=== PATIENT | female | born 1965 | race Caucasian/White ===

== ENCOUNTER 2021-03-04 00:28 | Emergency (ER) | payer OTHER ==
[~2021-03-04] VITALS: Ht 175.3 cm; Wt 122.5 kg
[~2021-03-04 00:28] MED LIST: ALEVE220 M1 PO; DIOVAN320 MG PO
[2021-03-04] MEDS ORDERED: DRIZALMA SPRINK20 MG PO (00:49)
[2021-03-04] MEDS ORDERED: LIPITOR10 MG PO (00:50)
[2021-03-04] MEDS ORDERED: COZAAR 25 MG TA25 M1 PO (00:50)
[2021-03-04] MEDS ORDERED: VITAMIN D310 MCG/1 M PO (00:50)
[2021-03-04] MEDS ORDERED: OXYBUTYNIN 5 MG5 M2 PO (00:50)
[2021-03-04] MEDS ORDERED: SYNJARDY 12.5-1 EACH PO (00:50)
[2021-03-04 01:45] LABS: ABSOLUTE BASOPHILS 0.1 thou/uL (0.0-0.2); ABSOLUTE EOSINOPHILS 0.1 thou/uL (0.0-0.7); ABSOLUTE LYMPHOCYTES 2.5 thou/uL (0.8-5.3); ABSOLUTE MONOCYTES 0.6 thou/uL (0.0-1.2); ABSOLUTE NEUTROPHILS 7.7 thou/uL (1.6-8.1); BASOPHILS 1.1 %; EOSINOPHILS 1.2 %; HEMATOCRIT 46.6 % (37.0-47.0); HEMOGLOBIN 15.3 gm/dL (12.0-15.0); LYMPHOCYTES 22.7 %; MCH 28.3 pg (26.0-34.0); MCHC 32.8 g/dL (28.0-37.0); MCV 86.2 fL (80.0-100.0); MONOCYTES 5.8 %; MPV 8.8 fl. (7.2-11.1); NUCLEATED RBCS 0 /100WBC; PLATELET COUNT* 298 thou/uL (150-400); POLYS 69.2 %; RBC 5.41 mil/uL (4.20-5.00); RDW-CV 14.6 % (10.5-14.5); WBC 11.1 thou/uL (4.0-11.0)
[2021-03-04 01:56] LABS: CALCIUM 9.5 mg/dL (8.5-10.1); CREATININE 0.7 mg/dL (0.6-1.3); POTASSIUM 3.9 mmol/L (3.5-5.1)
[2021-03-04 01:58] LABS: PROTIME 10.3 Seconds (9.20-11.50)
[2021-03-04 02:01] LABS: ALBUMIN 3.7 g/dL (3.4-5.0); TOTAL BILIRUBIN 0.5 mg/dL (<0.1-1.0); TOTAL PROTEIN 7.3 g/dL (6.4-8.2)
[2021-03-04 04:14] LABS: URINE BILIRUBIN NEGATIVE (Negative); URINE BLOOD NEGATIVE (Negative); URINE CLARITY CLEAR; URINE COLOR YELLOW; URINE GLUCOSE-RANDOM 2+ (Negative); URINE KETONES NEGATIVE (Negative); URINE LEUKOCYTES-REFLEX NEGATIVE (Negative); URINE NITRITE-REFLEX NEGATIVE (Negative); URINE PROTEIN NEGATIVE (Negative); URINE SPECIFIC GRAVITY <= 1.005 (1.005-1.030); URINE UROBILINOGEN 0.2 E.U./dl (0.2-1.0)
[2021-03-04] MEDS ORDERED: ZOFRAN ODT4 MG PO (04:48)
[2021-03-04] MEDS ORDERED: HYDROCODON-ACE1 EAC7 PO (04:48)
[2021-03-04 05:11] VITALS: BP 127/75
--- NOTE | 2021-03-04 14:21 | EKG ---
[place] [address] ELECTROCARDIOGRAM REPORT Name: JESE HERNANDEZ Room: [facility]#: [id number] Admission: 03/04/21 Attend Phys: Discharge: 03/04/21 Date of : 63 Date of Service: 03/04/21 0054 Report #: [id number] THIS REPORT FOR: //name// [facility] ED Test Date: 2021-03-04 Test Time: 00:54:42 Pat Name: JESE HERNANDEZ Department: Room: Gender: Hide Buffer: [place] : 1965 Requested By: Eve Burgos Order Number: [id number] MD: Jeffy Bernard Measurements Intervals Marcus Rate: 89 P: -1 MD: 176 QRS: -26 QRSD: 118 T: 79 QT: 404 QTc: 492 Interpretive Statements Sinus rhythm Incomplete left bundle branch block Left ventricular hypertrophy Borderline prolonged QT interval No previous ECG available for comparison Electronically Signed On 03-04-2021 14:21:16 CDT by Jeffy Bernard [email or web address] <ELECTRONICALLY SIGNED> By: Jeffy Bernard MD, [facility] 03/04/21 1421 0054 0054 Jeffy Bernard MD, [facility] /EPI
== END 2021-03-04 05:12 | disposition home or self-care (01) ==
LOC: M.ERS 00:28
PROVIDERS: Personal Emergency Response Attendant
DX: K52.89 Other specified noninfective gastroenteritis and colitis (principal); Z20.822 Contact with and (suspected) exposure to COVID-19; I10 Essential (primary) hypertension; Z79.899 Other long term (current) drug therapy; Z88.1 Allergy status to other antibiotic agents